=== PATIENT | male | born 1990 | race Caucasian/White ===

== ENCOUNTER 2024-11-07 03:02 | Emergency (ER) | payer OTHER, SELFPAY ==
[2024-11-07 03:08] VITALS: BP 140/101; PULSE 111; TEMP 36.9; O2SAT 99; BMI 26.6
--- NOTE | 2024-11-07 03:17 | ED_ITS ---
HPI - Ear Problem General Chief complaint: Ear Stated complaint: OBJECT, INSECT IN EAR Time Seen by Provider: 11/07/24 03:03 Source: patient Mode of arrival: walk-in Limitations: no limitations History of Present Illness HPI Narrative: This 34-year-old male presents for evaluation of a foreign body in his left ear. The patient was outside and felt something fly into his ear. Arrival he is shaking his head continually. Related Data Home Medications ?Medication ?Instructions ?Recorded ?Confirmed No Known Home Medications 11/07/2410/11 Allergies Allergy/AdvReac Type Severity Reaction Status Date / Time No Known Drug Allergies Allergy Verified 11/07/24 03:08 Review of Systems ROS Status of ROS 10 or more systems reviewed and unremark able except as noted in history and below PFSH PFSH Social History Little interest or pleasure in doing things: not at all Feeling down, depressed, or hopeless: not at all Exam Narrative Exam Narrative: Vital signs and Nursing Notes reviewed: Patient is afebrile, tachycardic with pulse of 111, blood pressure is elevated 140/101, he is not hypoxic with pulse ox of 99% on room air General: Awake, alert, oriented, agitated adult male shaking his head continually and crying, no respiratory distress HEENT: Normocephalic atraumatic, mucous membranes are moist and pink, eyes are clear, normal conjunctiva, vision is grossly intact, there is a visible foreign body in the left ear-appears to be an insect with wings fluttering Chest: Lungs are clear to auscultation with good air entry CVS: Regular rate and rhythm S1-S2, no murmurs rubs or gallops, pulses are brisk and equal bilaterally Extremities: Moving all extremities, no lower extremity tenderness or swelling noted, negative Homans' sign, pulses are brisk and equal bilaterally Skin: Normal in appearance without rash,pallor, petechiae or purpura Neuro: No focal deficits Constitutional Vital Signs, click to edit/add: Last Vital Signs Temp 98.4 F 11/07/24 03:08 Pulse 111 H 11/07/24 03:08 Resp 19 11/07/24 03:08 BP 140/101 H 11/07/24 03:08 Pulse Ox 99 11/07/24 03:08 O2 Del Method Room Air 11/07/24 03:08 Course Vital Signs Vital signs: Vital Signs Temperature 98.4 F 11/07/24 03:08 Pulse Rate 111 H 11/07/24 03:08 Respiratory Rate 19 11/07/24 03:08 Blood Pressure 140/101 H 11/07/24 03:08 Pulse Oximetry 99 11/07/24 03:08 Oxygen Delivery Method Room Air 11/07/24 03:08 Temperature 98.4 F 11/07/24 03:08 Pulse Rate 111 H 11/07/24 03:08 Respiratory Rate 19 11/07/24 03:08 Blood Pressure 140/101 H 11/07/24 03:08 Pulse Oximetry 99 11/07/24 03:08 Oxygen Delivery Method Room Air 11/07/24 03:08 Discharge Plan Discharge Chief Complaint: Ear Clinical Impression: Foreign body in left ear Patient Disposition: Home, Self-Care Time of Disposition Decision: 03:36 Condition: Good Prescriptions / Home Meds: No Action No Known Home Medications Print Language: Martiniquais Instructions: Ear Foreign Body (ED) Additional Instructions: Biotic eardrops 3-4 times a day for the next 3 to 4 days. Return to the emergency department for ear pain, drainage or any concerns. Procedures ED Procedure Instructions Procedures Procedures: Foreign body removal left ear. Cortisporin otic solution was placed into the left ear to kill the insect. Warm water and hydrogen peroxide was then used to irrigate the ear until the insect was removed. It was washed out with the solution. The ear canal was then reevaluated and there is no foreign body appreciated, there is mild erythema in the external ear canal but no tympanic membrane perforation.
[2024-11-07] MEDS: NEOMYCIN/POLYMYXIN B/HYDROCORTISONE OTIC SOLUTION 200 DROP/10 ML BOTTLE OT (03:34)
--- NOTE | 2024-11-07 03:46 | PC.NURSE ---
i gave this patient verbal and paper discharge orders and this patient voices yes to understanding these. at time of discharge this patient voices no concerns, needs shows no signs of distress
== END 2024-11-07 03:46 | disposition home or self-care (01) ==
PROVIDERS: Emergency Provider Emergency Medicine
DX: T16.2XXA Foreign body in left ear, initial encounter (principal)
CPT/HCPCS: 99282